=== PATIENT | male | born 1995 | race Two or more races ===

== ENCOUNTER 2025-03-11 21:39 | Emergency (ER) | payer SELFPAY ==
[~2025-03-11] VITALS: Ht 185.4 cm; Wt 99.8 kg
[~2025-03-11 21:39] MED LIST: ONDANSETRON ODT4 MG SL
[2025-03-11 22:13] VITALS: PULSE 81; RESP 16; TEMP 98.7
[2025-03-12 01:33] VITALS: BP 127/76; PULSE 70; RESP 18; TEMP 97.7; O2SAT 100
== END 2025-03-12 01:05 | disposition home or self-care (01) ==
LOC: ER 03-12 00:55
DX: S93.491A Sprain of other ligament of right ankle, initial encounter (principal); W10.8XXA Fall (on) (from) other stairs and steps, initial encounter; Y93.01 Activity, walking, marching and hiking; Y92.89 Other specified places as the place of occurrence of the external cause
CPT/HCPCS: 99283